=== PATIENT | male | born 1950 | race African-American/Black ===

== ENCOUNTER → 2016-08-21 | Outpatient (CLI) | payer MEDICARE, MEDICAID ==
[~2016-08-21] MED LIST: ALBUTEROL2.5 MG/3 M IH; CALAN120 MG PO; DIAZEPAM10 MG PO; DILAUDID4 M1 PO; HYDROMORPHONE HC8 M1 PO; INCRUSE EL62.5 MCG/A IH; LEVAQUIN 5500 MG/TA1 PO; LIDOCAINE 5%35.44 GM TP; NEURONTIN300 M1 PO; PREDNISONE20 M1 PO; SPIRIVA RE2.5 MCG/Ac IH
[2016-08-21 15:00] VITALS: BP 102/69
[2016-08-21 17:21] VITALS: BP 96/60
== END ==
LOC: AMSURD 14:00
DX: F11.23 Opioid dependence with withdrawal (principal)
CPT/HCPCS: J1885; J2405; J7030

== ENCOUNTER → 2016-08-28 | Outpatient (CLI) | payer MEDICARE, MEDICAID | LOC: LAB 10:06 | DX: D69.6 Thrombocytopenia, unspecified (principal) ==

== ENCOUNTER → 2017-02-20 | Outpatient (CLI) | payer MEDICARE, MEDICAID ==
[2016-08-21 17:21] VITALS: BP 96/60
== END ==
LOC: LAB 09:53
DX: Z12.5 Encounter for screening for malignant neoplasm of prostate (principal)

== ENCOUNTER → 2017-11-05 | Outpatient (CLI) | payer MEDICARE, MEDICAID ==
[2016-08-21 17:21] VITALS: BP 96/60
[2017-11-05 12:09] LABS: HEMATOCRIT 46.2 % (42.0-52.0); HEMOGLOBIN 15.2 g/dL (13.5-18.0); MEAN CELL VOLUME 94 fl (78-100); MEAN CORPUSCULAR HEMOGLOBIN 31 pg (27-31); MEAN CORPUSCULAR HGB CONC 33 g/dL (33-37); MEAN PLATELET VOLUME 9.6 fl (7.4-10.4); PLATELET COUNT 125 K/mm3 (130-400); RED CELL DISTRIBUTION WIDTH 13.1 % (11.5-14.5); WHITE BLOOD COUNT 5.9 K/mm3 (4.8-10.8)
[2017-11-05 12:21] LABS: ALBUMIN 3.9 g/dL (3.5-5.0); BUN/CREATININE RATIO 14.9 (6.0-26.0); CALCIUM 9.3 mg/dL (8.4-10.2); POTASSIUM 5.6 mmol/L (3.6-5.0); TOTAL BILIRUBIN 1.1 mg/dL (0.2-1.3); TOTAL PROTEIN 9.5 g/dL (6.3-8.2)
[2017-11-05 12:37] LABS: LYMPHOCYTE 26 % (20-51); MONOCYTE 5 % (3-10); NEUTROPHILS 68 % (42-75)
== END ==
LOC: RAD 11:52 → LAB 11:52
PROVIDERS: Nurse Practitioner Family
DX: M43.17 Spondylolisthesis, lumbosacral region (principal); M47.819 Spondylosis without myelopathy or radiculopathy, site unspecified; M54.5 Low back pain; G89.29 Other chronic pain; J43.8 Other emphysema; Z79.899 Other long term (current) drug therapy

== ENCOUNTER → 2017-12-09 | Outpatient (CLI) | payer MEDICARE, MEDICAID ==
[2016-08-21 17:21] VITALS: BP 96/60
== END ==
LOC: LAB 09:46
DX: M54.5 Low back pain (principal); G89.29 Other chronic pain; E87.5 Hyperkalemia; Z79.899 Other long term (current) drug therapy

== ENCOUNTER → 2017-12-10 | Outpatient (CLI) | payer MEDICARE, MEDICAID ==
[2016-08-21 17:21] VITALS: BP 96/60
[2017-12-10 10:07] LABS: BUN/CREATININE RATIO 10.3 (6.0-26.0)
[2017-12-10 10:25] LABS: POTASSIUM 4.5 mmol/L (3.6-5.0)
== END ==
LOC: LAB 09:20
PROVIDERS: Nurse Practitioner Family
DX: E87.5 Hyperkalemia (principal)